=== PATIENT | male | born 1960 | race African-American/Black ===

== ENCOUNTER 2020-11-24 12:24 | Emergency (ER) | payer OTHER ==
[2020-11-24 12:29] VITALS: BP 135/86
--- NOTE | 2020-11-24 13:31 | XRay Report ---
RIGHT HAND 3 VIEW(S) INDICATION / CLINICAL INFORMATION: right 3rd finger lac COMPARISON: None available. FINDINGS: BONES / JOINT(S): No acute fracture or subluxation. Possible laceration along the ulnar side of the m iddle finger tip. No radiopaque foreign body. SOFT TISSUES: No significant abnormality. ADDITIONAL FINDINGS: None. Signer Name: Leobardo Hanson MD Signed: 11/24/2020 1:26 PM Workstation Name: [id number]
[2020-11-24] MEDS ORDERED: TETANUS,DIPH,PERTUSS(ACELL) VACCINE 0.5 ML SYRINGE IM ONE (13:36)
[2020-11-24] MEDS ORDERED: LIDOCAINE (2%) 20 MG/1 ML VIAL 20 ML MDV INFILTRATI ONE (14:31)
--- NOTE | 2020-11-24 15:04 | Emergency Department Report ---
ED Laceration HPI - HPI Chief Complaint: Wound/Laceration Stated Complaint: CUT ON (R)FINGER Time Seen by Provider: 11/24/20 13:00 Occurred When: Today Location: Upper Extremity Severity: mild Tetanus Status: Not up to Date Laceration Symptoms: Yes Pain, No Foreign Body Sensation, No Numbness, No Weakness Other History: This is a 60-year-old male nontoxic, well nourished in appearance, no acute signs of distress presents to the ED with c/o of right index finger laceration that occurred today prior to arrival. Patient stated caused a laceration while mowing the lawn from the blade. Patient denies decreased sensation or range of motion. Patient stated bleeding is under control. Denies any numbness, tingling, fever, chills, nausea, vomiting, chest pain, shortness of breath, headache or stiff neck. Patient denies any allergies to significant past medical history. Patient is that he is not up-to-date with tetanus. Patient son is currently present at bedside for translation purposes. ED Review of Systems ROS: Stated complaint: CUT ON (R)FINGER Other details as noted in HPI Comment: All other systems reviewed and negative Constitutional: denies: chills, fever Eyes: denies: eye pain, eye discharge, vision change ENT: denies: ear pain, throat pain Respiratory: denies: cough, shortness of breath, wheezing Cardiovascular: denies: chest pain, palpitations Endocrine: no symptoms reported Gastrointestinal: denies: abdominal pain, nausea, diarrhea Genitourinary: denies: urgency, dysuria Musculoskeletal: denies: back pain, joint swelling, arthralgia Skin: denies: rash, lesions Neurological: denies: headache, weakness, paresthesias Psychiatric: denies: anxiety, depression Hematological/Lymphatic: denies: easy bleeding, easy bruising ED Past Medical Hx - Medications Home Medications: Home Medications Medication Instructions Recorded Confirmed Last Taken Type cephALEXin [Keflex] 500 mg PO Q8HR #21 cap 11/24/20 Unknown Rx Laceration Physical Exam - Exam General: Vital signs noted. No distress. Alert and acting appropriately. Wound Length (cm): 2 (superifical to right index finger) Laceration Location: Upper Extremity Laceration Exam: Yes Normal Distal CMS, No Foreign Body, No Exposed Tendon, Vessel, or Nerve, No Tendon Injury ED Course Vital Signs 11/24/20 12:28 Temperature 98.6 F Pulse Rate 100 H Respiratory 14 Rate Blood Pressure 135/86 [Left] O2 Sat by Pulse 100 Oximetry - Reevaluation(s) Reevaluation #1: 11/24/20 15:01 Patient is speaking in full sentences with no signs of distress noted. - Laceration /Wound Repair Right Finger Wound Location: upper extremity (Right index finger) Wound Length (cm): 2 Wound's Depth, Shape: superficial, irregular Wound Explored: clean Irrigated w/ Saline (ccs): 40 Betadine Prep?: Yes Volume Anesthetic (ccs): 3 (2% lidocaine plain) Wound Repaired With: sutures Suture Size/Type: 4:0, proline Number of Sutures: 5 Layer Closure?: No Sterile Dressing Applied?: Yes Progress: Under sterile field, I used Betadine to clean the area. I then used 40 mL of normal saline to flush the area. I then used 2% lidocaine plain and injected 6 mL to the wound. I then used a 4-0 Prolene to suture the laceration. Number of stitches 5. I then applied a sterile 4 x 4 with tape. Minimal bleeding noted but is under control. Patient tolerated procedure well with no signs of distress. ED Medical Decision Making - Radiology Data [facility] [address] [place] [address] XRay Report Signed Patient: CYNDI PINTO MR#: [id number] 3 : 1960 Acct:[id number] Age/Sex: 60 / M ADM Date: 11/24/20 Loc: ED Attending Dr: Ordering Physician: KATHY WELCH NP Date of Service: 11/24/20 Procedure(s): XR finger(s) 2+V RT Accession Number(s): [id number] cc: KATHY WELCH NP Fluoro Time In Minutes: RIGHT HAND 3 VIEW(S) INDICATION / CLINICAL INFORMATION: right 3rd finger lac COMPARISON: None available. FINDINGS: BONES / JOINT(S): No acute fracture or subluxation. Possible laceration along the ulnar side of the middle finger tip. No radiopaque foreign body. SOFT TISSUES: No significant abnormality. ADDITIONAL FINDINGS: None. Signer Name: Leobardo Hanson MD Signed: 11/24/2020 1:26 PM Workstation Name: [id number] Transcribed By: SB Dictated By: LEOBARDO HANSON MD Electronically Authenticated By: LEOBARDO HANSON MD Signed Date/Time: 11/24/201325 DD/ 25 TD/TT: - Medical Decision Making This is a 60-year-old male that presents with laceration. Patient is stable and was examined by me. The laceration suturing has been performed and has been performed and patient tolerated well. A sterile dressing has been applied. Patient was educated on proper wound care. Patient is discharged with Keflex. Patient was instructed to return in 10 days for suture removal. Patient was instructed to refer to Follow-up with a primary care doctor in 3-5 days or if symptoms worsen and continue return to emergency room as soon as possible. At time of discharge, the patient does not seem toxic or ill in appearance. No acute signs of distress noted. Patient agrees to discharge treatment plan of care. No further questions noted by the patient. Critical care attestation.: If time is entered above; I have spent that time in minutes in the direct care of this critically ill patient, excluding procedure time. ED Disposition Clinical Impression: Laceration of right index finger Qualifiers: Encounter type: initial encounter Damage to nail status: without damage Foreign body presence: without foreign body Qualified Code(s): S61.210A - Laceration without foreign body of right index finger without damage to nail, initial encounter Disposition: HOME / SELF CARE / HOMELESS Is pt being admited?: No Does the pt Need Aspirin: No Condition: Stable Instructions: Laceration Care, Adult Additional Instructions: Follow-up with a primary care and orthopedic doctor in 3-5 days or if symptoms worsen and continue return to emergency room as soon as possible. Return in 10 days for suture removal. No physical activity that extremity until cleared by doctor Prescriptions: cephALEXin [Keflex] 500 mg PO Q8HR #21 cap Referrals: DAMON TAN MD [Primary Care Provider] - 3-5 Days BAL PITTS MD [Staff Physician] - 3-5 Days SCOUT ZURITA MD [Staff Physician] - 3-5 Days Forms: Work/School Release Form(ED) Time of Disposition: 15:04
== END 2020-11-24 15:10 | disposition home or self-care (01) ==
LOC: ED 12:24
DX: S61.201A Unspecified open wound of left index finger without damage to nail, initial encounter (principal); Z79.899 Other long term (current) drug therapy; W26.8XXA Contact with other sharp object(s), not elsewhere classified, initial encounter; Y93.89 Activity, other specified; Y92.89 Other specified places as the place of occurrence of the external cause; Y99.8 Other external cause status
CPT/HCPCS: 90471; 90715; 99283